=== PATIENT | female | born 2000 | race African-American/Black ===

== ENCOUNTER 2018-04-20 02:22 | Emergency (ER) | payer SELFPAY ==
[~2018-04-20] VITALS: Ht 172.7 cm; Wt 75.0 kg
[2018-04-20 02:23] VITALS: BP 144/98
== END 2018-04-20 03:54 | disposition left against medical advice (07) ==
LOC: EMS 02:22
DX: L02.414 Cutaneous abscess of left upper limb (principal); Z53.21 Procedure and treatment not carried out due to patient leaving prior to being seen by health care provider

== ENCOUNTER 2021-01-06 20:28 | Emergency (ER) | payer MEDICAID ==
[~2021-01-06] VITALS: Ht 175.3 cm; Wt 87.3 kg
[2021-01-06 21:39] LABS: BASOPHILS % (AUTO) 0.6 % (0.0-2.0); EOSINOPHILS % (AUTO) 0.3 % (1.0-6.0); HEMATOCRIT 36.2 % (36-46); HEMOGLOBIN 11.6 g/dL (12.0-16.0); LYMPHOCYTES # (AUTO) 1.4 K/uL (1.0-4.8); MEAN CORPUSCULAR HEMOGLOBIN 26.5 pg (26.0-34.0); MEAN CORPUSCULAR HGB CONC 32.1 G/dL (31.0-37.0); MEAN CORPUSCULAR VOLUME 83 fL (80-100); MONOCYTES # (AUTO) 0.5 K/uL (0.1-1.0); MONOCYTES % (AUTO) 6.5 % (2.0-9.0); NEUTROPHILS # (AUTO) 6.3 K/uL (1.8-7.7); NEUTROPHILS % (AUTO) 75.6 % (40.0-70.0); PLATELET COUNT (AUTO) 268 K/uL (150-450); RED BLOOD CELL COUNT(AUTO) 4.39 MIL/uL (4.00-5.20); RED CELL DISTRIBUTION WIDTH 13.5 % (11.5-14.5)
[2021-01-06 21:49] LABS: ANION GAP 11 mmol/L (8-16); CALCIUM, TOTAL 8.9 mg/dL (8.8-10.5); CARBON DIOXIDE 24 mmol/L (22-29); CHLORIDE 104 mmol/L (98-107); CREATININE 1.08 mg/dL (0.60-1.30); GLOMERULAR FILTR. RATE CALC > 60 mL/min (>60); GLUCOSE,RANDOM 78 mg/dL (70-110); POTASSIUM 3.2 mmol/L (3.5-5.1); SODIUM SERUM 139 mmol/L (136-145); UREA NITROGEN, BLOOD 12 mg/dL (7-18)
[2021-01-06 22:09] LABS: ALANINE AMINOTRANSFERASE 22 U/L (12-78); ALBUMIN 3.6 g/dL (3.4-5.0); ALKALINE PHOSPHATASE 81 U/L (46-116); ASPARTATE AMINOTRANSFERASE 17 U/L (15-37); BILIRUBIN,TOTAL 0.5 mg/dL (0.1-1.0); HCG,QUANTITATIVE < 1 mIU/mL (0-6); TOTAL PROTEIN, SERUM 6.9 g/dL (6.4-8.2)
[2021-01-06] MEDS ORDERED: POTASSIUM CHLORIDE 20 MEQ ER TABLET PO ONE (22:15)
[2021-01-06] MEDS ORDERED: SODIUM CHLORIDE 0.9% 1,000 ML IV ONE (23:30)
[2021-01-06] MEDS ORDERED: ACETAMINOPHEN 500 MG TABLET PO ONE (23:30)
[2021-01-07 05:00] VITALS: BP 124/66
== END 2021-01-07 06:12 | disposition home or self-care (01) ==
LOC: EMS 20:30
DX: T50.7X1A Poisoning by analeptics and opioid receptor antagonists, accidental (unintentional), initial encounter (principal); E87.6 Hypokalemia; Y92.89 Other specified places as the place of occurrence of the external cause
CPT/HCPCS: 71045; 80053; 82948; 84702; 85025; 93005; 96360; 99285; G0480; J7030